=== PATIENT | male | born 1995 | race Caucasian/White ===

== ENCOUNTER → 2025-09-24 | Day surgery (SDC) | payer BC ==
[~2025-09-24] VITALS: Ht 182.9 cm; Wt 104.3 kg
[~2025-09-24] MED LIST: ACETAMINOPHEN 1000MG/100ML 100 ML IV ONE; ACETAMINOPHEN 325MG TABLET PO PRN; BUPIVACAINE HCL/PF 0.5% (5MG/ML) 10ML ONE; CEFAZOLIN SODIUM 1000MG/VIAL ONE; DEXT 5%/0.45% NACL KCL 20MEQ/L 1,000 ML IV SCH; FAMOTIDINE 20MG/2ML VIAL IV ONE; FENTANYL CITRATE/PF 50MCG/ML 5ML VIAL ONE; HYDR-4001 MT; HYDROCODONE/ACETAMINOPHEN 5/325MG TABLET PO PRN; HYDROMORPHONE HCL/PF 1MG/ML INJ ONE; HYDROMORPHONE HCL/PF 2MG/ML INJ IV PRN; LIDOCAINE HCL/EPINEPHRINE 1%-EPI 1:100,000 20ML VIAL ONE; METOCLOPRAMIDE HCL 10MG/2ML VIAL ONE; MIDAZOLAM HCL 2 MG/2 ML VIAL ONE; MORPHINE SULFATE 2 MG/ML INJ (NOT FOR IM USE) IV PRN; NALOXONE HCL 0.4MG/ML VIAL IV PRN; ONDANSETRON HCL 4MG/2ML INJ IV PRN; ONDANSETRON HCL 4MG/2ML INJ ONE; PHENYLEPHRINE HCL 10MG/ML 1ML IV ONE; POLYMYXIN B SULFATE 500000 UNITS/VIAL ONE; PROPOFOL 200MG/20ML VIAL IV ONE; ROCURONIUM BROMIDE 10MG/ML VIAL 5ML IV ONE; SODIUM CHLORIDE 0.9% 3ML FLUSH IVF SCH; VANCOMYCIN HCL 1GM VIAL ONE
[2025-09-24] MEDS: LACTATED RINGERS 1,000 ML IV SCH (06:15)
[2025-09-24 10:52] VITALS: BP 126/62; PULSE 71; RESP 15
[2025-09-24] MEDS: HYDROCODONE/ACETAMINOPHEN 5/325MG TABLET PO PRN (10:52)
== END | disposition home or self-care (01) ==
LOC: OR 05:14
DX: M66.88 Spontaneous rupture of other tendons, other sites (principal); M19.90 Unspecified osteoarthritis, unspecified site; G89.29 Other chronic pain; Z79.899 Other long term (current) drug therapy; Z98.890 Other specified postprocedural states
CPT/HCPCS: 27380; 97161; 97116; J3010; J0665; J0690; J1308; J2004; J2765; J2250; J2405; J2371; J3490 ×2; J2704; J3373; J1171; 88304; C1713; J0131; Q4133